=== PATIENT | male | born 1955 | race Caucasian/White ===

== ENCOUNTER 2023-04-15 22:55 | Observation (INO) | payer OTHER, MEDICAID, SELFPAY ==
[2023-04-15 22:59] VITALS: BP 120/84; PULSE 96; RESP 16; TEMP 36.8; O2SAT 97
[2023-04-16] VITALS (7 sets, daily range): BP systolic 113–126; BP diastolic 71–78; PULSE 74–96; RESP 16–18; TEMP 36.4–36.9; O2SAT 97–99; BMI 18.7
--- NOTE | 2023-04-16 00:09 | ED_ITS ---
HPI - General Adult General Chief complaint: Urogenital-Male Stated complaint: UTI Time Seen by Provider: 04/15/23 23:05 Source: patient Mode of arrival: ambulance History of Present Illness HPI narrative: This 67-year-old male is brought to the emergency department by EMS from a half-way in [place]. Patient states that he called 911 because he felt that his Hutchinson catheter which she has had for several months due to urinary retention was clogged and that he had a urinary tract infection. He has not had a fever. The back story is that this patient was discharged from [address] yesterday morning after he was admitted for Major depression for a 2 week stay. Into the records we were able to obtain the patient went to [facility] on April 03. At that time he was living in a motel with a female friend. He became agitated and complained of feeling suicidal while in the emergency department and was evaluated by P and transferred to [facility] for psychiatric evaluation and stabilization. The patient is wheelchair-bound because of chronic hip pain. He states he has [id number] in his hips and is nonambulatory. The patient was discharged yesterday and went to [facility] with his female senior staff consultant and found that she was no longer there. He was able to contact her and found that she was in a local half-way and [facility]. He went to this half-way this evening to see her and then called 911. The paramedics stated to us that he complained of urinary symptoms and was not feeling well. In this emergency department he states to me that he thinks he has a urinary tract inffection and that his Hutchinson catheter was clogged. His Hutchinson catheter was irrigated and is not clogged. He is afebrile. The patient apparently is homeless and is adamant that I called to speak to his female senior staff consultant and he wants to be admitted to the half-way where his friend is currently staying. He states that they have a house that we'll be ready in early April together. Related Data Allergies Allergy/AdvReac Type Severity Reaction Status Date / Time Unable to Assess Allergy Verified 04/16/23 00:19 Review of Systems ROS Status of ROS 10 or more systems reviewed and unremark able except as noted in history and below PFSH PFSH Social History Smoking status: Current every day smoker Exam Narrative Exam Narrative: Nurses note and vital signs reviewed and patient is not hypoxic.He is afebrile with a normal pulse, normal blood pressure General: Thin nontoxic male resting comfortably on the stretcher, no respiratory distress Skin: Warm, dry, no pallor noted. There is no rash noted. Head: Normocephalic, atraumatic Eye: Normal conjunctiva, no drainage, EOMI. PERRL Ears, Nose, Mouth, and Throat: oral mucosa is moist. Respiratory: Patient is in no distress, no accessory muscle use, lungs are clear to auscultation, no wheezing, rales or rhonchi Back: non-tender, no CVA tenderness bilaterally to percussion. GI: Normal bowel sounds, no tenderness to palpation, no masses appreciated. No rebound, guarding, or rigidity noted. : Hutchinson catheter in place draining clear yellow urine after irrigation, large bowel of urine noted in the Hutchinson bag Musculoskeletal: The patient has no evidence of calf tenderness, no pitting edema, symmetrical pulses noted bilaterally Neurological: A&O x4, No focal deficits Psychiatric: Irritable Constitutional Vital Signs, click to edit/add: Last Vital Signs Temp 98.2 F 04/15/23 22:59 Pulse 89 04/16/23 06:09 Resp 16 04/16/23 06:09 BP 116/77 04/16/23 06:09 Pulse Ox 99 04/16/23 06:09 O2 Del Method Room Air 04/16/23 06:09 Course Vital Signs Vital signs: Vital Signs Temperature 98.2 F 04/15/23 22:59 Pulse Rate 96 H 04/15/23 22:59 Respiratory Rate 16 04/15/23 22:59 Blood Pressure 120/84 04/15/23 22:59 Pulse Oximetry 97 04/15/23 22:59 Oxygen Delivery Method Room Air 04/15/23 22:59 Temperature 98.2 F 04/15/23 22:59 Pulse Rate 89 04/16/23 06:09 Respiratory Rate 16 04/16/23 06:09 Blood Pressure 116/77 04/16/23 06:09 Pulse Oximetry 99 04/16/23 06:09 Oxygen Delivery Method Room Air 04/16/23 06:09 Medical Decision Making MDM Narrative Medical decision making narrative: This 67-year-old homeless and non-ambulatory- wheelchair bound male is brought to the emergency department from a local extended care facility where he was visiting his girlfriend. He is currently homeless. EMS was called because the patient stated that he felt that his Hutchinson catheter was clogged and he was getting a urinary tract infection. Upon arrival it was clear that he was brought to the emergency department for ECF placement as he states that he wants to be admitted to the half-way where his girlfriend is currently staying until a house that they are supposed to be living in together is ready in mid April. The patient was formerly living in a local motel with this woman. She was admitted to a half-way and he was admitted to [address] for the past 2 weeks. His belongings that were in the motel are currently locked up because he and his girlfriend owe the motel money. EMS told us that they could not transport his wheelchair from the ECF due to safely reasons. I called them and informed them that this was unacceptable and they delivered his wheelchair and medications that he was discharged with to this ED. They did divulge to me on the phone that they brought him here for placement, despite their report of him being will with a UTI and did not think they needed to bring his wheelchair with him for that reason He is not toxic appearing he is not febrile. He is a diabetic. His glucose was elevated at 411. Remainder of his labs are normal. IV had been established by EMS and he was receiving IV fluids upon arrival. He had not eaten since this morning and probably prior to being discharged from [facility]. His hutchinson was irrigated and urine was obtained after it was irrigated and flowing freely and does show 75-100 WBC/HPF. Urine was sent for culture. He was given 1gm IV Rocephin for the UTI pending cultures. I, personally, made multiple calls to the 211 line that is supposed to help people with such issues and was told that there were no services available in [facility] referral line gave me the number for [facility] in [place], [place] - they have no available beds and the [facility] in [place] was unable to be contacted. [facility] had no services available except possibly in [place], [place]. I will discuss the case with the hospitalist at 6am due to the complexity of the social issues and potential need for placement. 0620- Case discussed at length with Dr Escobedo- we will consult social work as he has recently been admitted to [facility] and may not need admission for placement. Lab Data Lab results reviewed: Yes I reviewed the patient's lab results (=UTI, elevated glucose, normal lactic and creatinine) Labs: Lab Results 04/16/23 04/16/23 04/16/23 Range/Units 00:00 01:51 02:00 WBC 11.1 H (4.0-11.0) 10^3/uL RBC 4.65 L (4.70-6.10) 10^6/uL Hgb 13.5 L (14.0-18.0) g/dL Hct 41.1 L (42.0-54.0) % MCV 88.4 (80.0-94.0) fL MCH 29.0 (25.9-34.0) pg MCHC 32.8 (29.9-35.2) g/dL RDW 12.6 (11.0-15.0) % Plt Count 250 (150-450) 10^3/uL MPV 11.0 (9.5-13.5) fL Neut % (Auto) 80.4 H (43.0-75.0) % Lymph % (Auto) 12.1 L (20.5-60.0) % Jun[place] % (Auto) 6.1 (1.7-12.0) % Eos % (Auto) 0.4 L (0.9-7.0) % Baso % (Auto) 0.4 (0.2-2.0) % Neut # (Auto) 9.0 H (1.4-6.5) 10^3/uL Lymph # (Auto) 1.3 (1.2-3.8) 10^3/uL Jun[place] # (Auto) 0.7 (0.3-0.8) 10^3/uL Eos # (Auto) 0.0 (0.0-0.7) 10^3/uL Baso # (Auto) 0.0 (0.0-0.1) 10^3/uL Abs Immat Gran (auto) 0.07 H (0.00-0.03) 10^3/uL Imm/Tot Granulo (auto) 0.6 H (0.0-0.5) % Sodium 132 L (136-145) mmol/L Potassium 4.5 (3.5-5.1) mmol/L Chloride 98 (98-107) mmol/L Carbon Dioxide 29.3 (21.0-32.0) mmol/L Anion Gap 9.2 BUN 16.0 (7.0-18.0) mg/dL Creatinine 0.67 L (0.70-1.30) mg/dL Est GFR ( Amer) >60 (>=60) Est GFR (Non-Af Amer) >60 (>=60) BUN/Creatinine Ratio 23.9 Glucose 420 H (74-106) mg/dL Lactate 1.7 (0.4-2.0) mmol/L Calcium 9.3 (8.5-10.1) mg/dL Total Bilirubin 0.3 (0.2-1.0) mg/dL AST 6 L (15-37) U/L ALT 8 L (16-63) U/L Alkaline Phosphatase 98 (46-116) U/L Total Protein 6.6 (6.4-8.2) g/dL Albumin 3.2 L (3.4-5.0) g/dL Globulin 3.4 g/dL Albumin/Globulin Ratio 0.9 Urine Color Yellow (YELLOW) Urine Clarity Clear (CLEAR) Urine pH 7.0 (5.0-9.0) Ur Specific [place] <=1.005 A (1.005-1.025) Urine Protein Negative (NEG/TRACE) mg/dL Urine Glucose (UA) >=1000 A (NEGATIVE) mg/dL Urine Ketones Negative (NEGATIVE) mg/dL Urine Occult Blood Trace-i (NEGATIVE) Urine Nitrite Negative (NEGATIVE) Urine Bilirubin Negative (NEGATIVE) Urine Urobilinogen 0.2 (0.2-1.0) EU/dL Ur Leukocyte Esterase Moderate A (NEGATIVE) Urine RBC 5-10 A (0-2) #/HPF Urine WBC 75-100 A (NONE SEEN) #/HPF Ur Squamous Epith Cells Rare (NONE/RARE) #/LPF Urine Crystals None seen (None Seen) #/HPF Urine Bacteria Large A (NONE SEEN) #/HPF Urine Casts None seen (NONE SEEN) #/LPF Urine Mucus None seen (NONE SEEN) POC Glucose 332 H (74-106) mg/dL 04/16/23 Range/Units 04:40 WBC (4.0-11.0) 10^3/uL RBC (4.70-6.10) 10^6/uL Hgb (14.0-18.0) g/dL Hct (42.0-54.0) % MCV (80.0-94.0) fL MCH (25.9-34.0) pg MCHC (29.9-35.2) g/dL RDW (11.0-15.0) % Plt Count (150-450) 10^3/uL MPV (9.5-13.5) fL Neut % (Auto) (43.0-75.0) % Lymph % (Auto) (20.5-60.0) % Juncos % (Auto) (1.7-12.0) % Eos % (Auto) (0.9-7.0) % Baso % (Auto) (0.2-2.0) % Neut # (Auto) (1.4-6.5) 10^3/uL Lymph # (Auto) (1.2-3.8) 10^3/uL Juncos # (Auto) (0.3-0.8) 10^3/uL Eos # (Auto) (0.0-0.7) 10^3/uL Baso # (Auto) (0.0-0.1) 10^3/uL Abs Immat Gran (auto) (0.00-0.03) 10^3/uL Imm/Tot Granulo (auto) (0.0-0.5) % Sodium (136-145) mmol/L Potassium (3.5-5.1) mmol/L Chloride (98-107) mmol/L Carbon Dioxide (21.0-32.0) mmol/L Anion Gap BUN (7.0-18.0) mg/dL Creatinine (0.70-1.30) mg/dL Est GFR ( Amer) (>=60) Est GFR (Non-Af Amer) (>=60) BUN/Creatinine Ratio Glucose (74-106) mg/dL Lactate 1.7 (0.4-2.0) mmol/L Calcium (8.5-10.1) mg/dL Total Bilirubin (0.2-1.0) mg/dL AST (15-37) U/L ALT (16-63) U/L Alkaline Phosphatase (46-116) U/L Total Protein (6.4-8.2) g/dL Albumin (3.4-5.0) g/dL Globulin g/dL Albumin/Globulin Ratio Urine Color (YELLOW) Urine Clarity (CLEAR) Urine pH (5.0-9.0) Ur Specific [place] (1.005-1.025) Urine Protein (NEG/TRACE) mg/dL Urine Glucose (UA) (NEGATIVE) mg/dL Urine Ketones (NEGATIVE) mg/dL Urine Occult Blood (NEGATIVE) Urine Nitrite (NEGATIVE) Urine Bilirubin (NEGATIVE) Urine Urobilinogen (0.2-1.0) EU/dL Ur Leukocyte Esterase (NEGATIVE) Urine RBC (0-2) #/HPF Urine WBC (NONE SEEN) #/HPF Ur Squamous Epith Cells (NONE/RARE) #/LPF Urine Crystals (None Seen) #/HPF Urine Bacteria (NONE SEEN) #/HPF Urine Casts (NONE SEEN) #/LPF Urine Mucus (NONE SEEN) POC Glucose (74-106) mg/dL Discharge Plan Discharge Chief Complaint: Urogenital-Male Clinical Impression: Hyperglycemia due to diabetes mellitus, Homeless single person, UTI (urinary tract infection) due to urinary indwelling catheter Patient Disposition: Still a Patient Referrals: Physician,Non-Staff, MD [Primary Care Provider] - 1 week
--- NOTE | 2023-04-16 00:24 | PC.NURSE ---
Patient with hutchinson catheter, states he has had for over a month, but has been changed several times since initially placed. States he was visiting a friend at the prison in [place] when he started having pain, feeling like the urine was not draining, like it was clogged. Since this has happened in the past, his friend told him to call 911. On arrival to the ED, there was approximately 800ml of yellow, mucousy urine in the hutchinson drainage bag, and patient denies any pain or discomfort at this time.
[2023-04-16 00:32] LABS: Basophils Percent Auto 0.4 % (0.2-2.0); Eosinophils Percent Auto 0.4 % (0.9-7.0); Hematocrit 41.1 % (42.0-54.0); Hemoglobin 13.5 g/dL (14.0-18.0); Immature Granulocytes Abs Auto 0.07 10^3/uL (0.00-0.03); Immature Granulocytes Pct Auto 0.6 % (0.0-0.5); Lymphocytes Absolute Auto 1.3 10^3/uL (1.2-3.8); Lymphocytes Percent Auto 12.1 % (20.5-60.0); Mean Corpuscular HGB Conc 32.8 g/dL (29.9-35.2); Mean Corpuscular Volume 88.4 fL (80.0-94.0); Monocytes Absolute Auto 0.7 10^3/uL (0.3-0.8); Monocytes Percent Auto 6.1 % (1.7-12.0); Neutrophils Percent Auto 80.4 % (43.0-75.0); Platelet Count 250 10^3/uL (150-450); Red Blood Count 4.65 10^6/uL (4.70-6.10); Red Cell Distribution Width 12.6 % (11.0-15.0); White Blood Count 11.1 10^3/uL (4.0-11.0)
--- NOTE | 2023-04-16 00:33 | PC.NURSE ---
Patient describes that his stay at [facility] was not to the ER, but was a 2 week stay at [address] [place] [address]. He says he went in with a medical complaint about his catheter, but they made him stay in the [facility] , and he does not know why. He explains that when he got out today, they sent him home in a taxi, and by home, he means to the hotel he was living in with his significant other. When he arrived, she was not there. He went to the office of the hotel and found out that she had been moved to a snf in [place]. The box printer took him to this snf to see his significant other where he was visiting when he called 911. He explains that they have an apartment lined up that they plan to move into together, but it will not be ready for them until the middle of April. He would ultimately like to be sent to live at the same snf where the friend lives. He is otherwise homeless. He is wheelchair bound due to chronic right hip degeneration. He is diabetic and his sugars have been uncontrolled.
[2023-04-16 00:48] LABS: Lactate/Lactic Acid 1.7 mmol/L (0.4-2.0)
[2023-04-16 00:55] LABS: Alanine Aminotransferase 8 U/L (16-63); Albumin Globulin Ratio 0.9; Albumin Level 3.2 g/dL (3.4-5.0); Alkaline Phosphatase 98 U/L (46-116); Anion Gap 9.2; Aspartate Amino Transferase 6 U/L (15-37); BUN Creatinine Ratio 23.9; Bilirubin Total 0.3 mg/dL (0.2-1.0); Calcium 9.3 mg/dL (8.5-10.1); Carbon Dioxide 29.3 mmol/L (21.0-32.0); Chloride 98 mmol/L (98-107); Estimated GFR (African America >60 (>=60); Estimated GFR (Non-African Ame >60 (>=60); Globulin 3.4 g/dL; Glucose 420 mg/dL (74-106); Potassium 4.5 mmol/L (3.5-5.1); Sodium 132 mmol/L (136-145); Total Protein 6.6 g/dL (6.4-8.2)
[2023-04-16] MEDS: INSULIN REGULAR 300 UNITS/3 ML 8 UNIT SUBQ (01:52)
[2023-04-16 01:58] LABS: Glucometer 332 mg/dL (74-106)
[2023-04-16 02:08] LABS: Bilirubin Urine NEGATIVE (NEGATIVE); Blood Urine TRACE-I (NEGATIVE); Clarity Urine CLEAR (CLEAR); Color Urine YELLOW (YELLOW); Glucose Urine UA >=1000 mg/dL (NEGATIVE); Ketones Urine NEGATIVE (NEGATIVE); Leukocyte Esterase Urine MODERATE (NEGATIVE); Nitrite Urine NEGATIVE (NEGATIVE); Protein Urine NEGATIVE (NEG/TRACE); Specific Gravity Urine <=1.005 (1.005-1.025); Urobilinogen Urine 0.2 EU/dL (0.2-1.0)
--- NOTE | 2023-04-16 02:12 | PC.NURSE ---
Dr Flores used the 211 resource number to try and find accommodations for this patient. She was given several numbers to try, none of which were able to help at this time. I also called the [facility] in [place], there were no openings there, and the other local homeless shelters were not open. At this time, Dr Flores has said that the patient does not meet criteria for admission here, so she is going to keep him in the ED and have high school social science teacher speak to him in the morning. He has asked that high school social science teacher please call April Jacob at [phone] who is his friend/ significant other that lives at the pen[facility]iary in [place] at [address] ([place] He told me that he is not great at communicating, but he would like April to speak on his behalf about their situation.
[2023-04-16 02:16] LABS: Bacteria Urine LARGE #/HPF (NONE SEEN); Cast Seen? NONE SEEN #/LPF (NONE SEEN); Crystals Seen? None Seen #/HPF (None Seen); Mucus Urine NONE SEEN (NONE SEEN); Squamous Epithelial Cell Urine RARE #/LPF (NONE/RARE); WBC Urine 75-100 #/HPF (NONE SEEN)
[2023-04-16] MEDS: CEFTRIAXONE 1,000 MG in 0.9 % SODIUM CHLORIDE 50 ML 100 MG IV ×2 (03:51→22:29)
[2023-04-16 05:13] LABS: Lactate/Lactic Acid 1.7 mmol/L (0.4-2.0)
--- NOTE | 2023-04-16 09:22 | P.HP_ITS ---
H&P: HPI History of Present Illness Chief complaint: UTI Narrative: Patient with a complicated recent history, recent discharge from [facility], sent home, unable to ambulate on right hip. Patient has been through rehab in the past for this right hip pain with success in terms of getting him to be able to walk with a walker. Unable to currently. Patient also found to have acute UTI with leukocytosis and poorly controlled diabetes mellitus. Acute UTI secondary to chronic indwelling Johnson for BPH. Has been treated as an outpatient for the UTI. With failed outpatient treatment for UTI uncontrolled diabetes and unable to ambulate secondary to right hip pain patient is admitted to inpatient status for evaluation and aggressive treatment. Review of Systems ROS Status of ROS 10 or more systems reviewed and unremark able except as noted in history and below Constitutional Denies: fever or chills Cardiovascular Denies: chest pain or palpitations Respiratory Reports: shortness of breath and cough PFSH PFSH Social History Smoking status: Current every day smoker Meds Home Medications and Allergies Home Medications Medication Instructions Recorded Confirmed Type finasteride 5 mg tablet 5 mg PO DAILY 04/16/23 04/16/23 History insulin glargine 100 unit/mL (3 32 unit subcut BEDTIME 04/16/23 04/16/23 History mL) subcutaneous pen (Lantus Solostar U-100 Insulin) insulin regular human 100 unit/mL 1 sliding scale dose subcut 04/16/23 04/16/23 History (3 mL) subcutaneous pen (Novolin R TIDWMEAL FlexPen) lithium carbonate 300 mg 300 mg PO BID 04/16/23 04/16/23 History tablet,extended release metformin 500 mg tablet 500 mg PO BID 04/16/23 04/16/23 History oxybutynin chloride 5 mg tablet 5 mg PO BEDTIME 04/16/23 04/16/23 History tamsulosin 0.4 mg capsule 0.4 mg PO BID 04/16/23 04/16/23 History Allergies Allergy/AdvReac Type Severity Reaction Status Date / Time Unable to Assess Allergy Verified 04/16/23 00:19 Exam Constitutional Vital Signs, click to edit/add: Last Vital Signs Temp 98.2 F 04/15/23 22:59 Pulse 89 04/16/23 06:09 Resp 16 04/16/23 06:09 BP 116/77 04/16/23 06:09 Pulse Ox 99 04/16/23 06:09 O2 Del Method Room Air 04/16/23 06:09 Documenting provider has reviewed patient's vital signs: yes Common normals: no apparent distress (Slight cough) HENMT Common normals: moist oral mucous membranes Chest Common normals: inspection of chest normal Respiratory Common normals: normal respiratory effort and no retractions Auscultation: rhonchi and diminished lung sounds Cardio Common normals: regular rate, regular rhythm and no murmurs GI Common normals: Normal to inspection, nondistended, normoactive bowel sounds present Extremity Common normals: normal to inspection Other: Very limited range of motion right hip secondary to pain. Psych Appearance: grossly normal Results Labs Labs: Short CBC 04/16/23 Range/Units 00:00 WBC 11.1 H (4.0-11.0) 10^3/uL Hgb 13.5 L (14.0-18.0) g/dL Hct 41.1 L (42.0-54.0) % Plt Count 250 (150-450) 10^3/uL BMP 04/16/23 00:00 Sodium 132 L Potassium 4.5 Chloride 98 Carbon Dioxide 29.3 BUN 16.0 Creatinine 0.67 L Glucose 420 H Calcium 9.3 Liver Function 04/16/23 Range/Units 00:00 Total Bilirubin 0.3 (0.2-1.0) mg/dL AST 6 L (15-37) U/L ALT 8 L (16-63) U/L Alkaline Phosphatase 98 (46-116) U/L Albumin 3.2 L (3.4-5.0) g/dL Urine 04/16/23 Range/Units 02:00 Urine Color Yellow (YELLOW) Urine Clarity Clear (CLEAR) Urine pH 7.0 (5.0-9.0) Ur Specific [place] <=1.005 A (1.005-1.025) Urine Protein Negative (NEG/TRACE) mg/dL Urine Glucose (UA) >=1000 A (NEGATIVE) mg/dL Assessment and Plan Assessment and Plan (1) UTI (urinary tract infection) due to urinary indwelling catheter: (2) Hyperglycemia due to diabetes mellitus: Plan Leukocytosis, hyponatremia secondary to uncontrolled diabetes mellitus secondary to acute UTI secondary to chronic indwelling Johnson-IV antibiotics, broad- spectrum's has been and placed on oral agents although he does not member which 1 as an outpatient. Start with Cipro and Rocephin. Cultures pending for blood and urine. Poorly controlled insulin-dependent diabetes mellitus-insulin sliding scale here will continue with home regiment. That likely needs to be adjusted. Sugar also likely elevated secondary to the above. Hyponatremia secondary to hyperglycemia-monitor daily, patient with good p.o. intake currently so we will hold off on IV fluids. Coronary artery disease-patient has 1 stent placed continue with daily aspirin. Check high-sensitivity troponin for possible demand ischemia from the above. May need echocardiogram Iron deficiency anemia as well as anemia of chronic medical illness being diabetes-continue to monitor, if continues to decline possible Hemoccult Leukocytosis secondary to the acute UTI-monitor daily Mild protein calorie malnutrition-diet supplement Right hip patient unable to ambulate. He has been to rehab before with success in terms of making it so he can ambulate. At some point in his life he likely needs a hip replacement but was sugar uncontrolled would not happen anytime in the near future. Patient is highly motivated for returning to home. He would be an excellent candidate at rehab as he has been successful in the past. Bipolar disorder-check lithium level COPD-fairly stable does have a cough, will check chest x-ray, on antibiotics for the UTI may cover any infectious etiology if this is at the start of an acute exacerbation of COPD. Hold off on steroids secondary to the hyperglycemia Place patient inpatient status secondary to all of the above-failed outpatient treatment, patient unable to ambulate and could benefit from a rehabilitation. Blood physical therapy assessed patient today. Maintain current inpatient status. Patient likely here at least 3 days, possibly forbade depending on results of cultures. Highly suspect resistant organisms secondary to failed outpatient treatment Urinary Catheter Management Urinary Catheter Management Urethral: Cath placed during this visit: no
--- NOTE | 2023-04-16 09:25 | XR_ITS ---
The [address] [address] Patient Name: JOANN BARNETT MRN: [id number] date: 1955 Sex: M Assigned Patient Location: ER Current Patient Location: ER Accession/Order Number: [id number] Exam Date: 04/16/2023 09:42 Report Date: 04/16/2023 09:56 At the request of: YOSI BARRETT Procedure: XR chest 2V EXAMINATION: XR chest 2V HISTORY: Dyspnea COMPARISON: No relevant comparison available. FINDINGS: LUNGS: No significant pulmonary parenchymal abnormalities. VASCULATURE: No increased pulmonary vasculature. PLEURA: No pneumothorax, effusion, or pleural thickening. CARDIAC: No cardiomegaly or cardiac silhouette abnormality. MEDIASTINUM: No visible mass or adenopathy. BONES: No fracture or visible bone lesion. OTHER: Negative. XR/XR chest 2V IMPRESSION: 1. No acute cardiopulmonary process. Electronically authenticated by: LUI CHANDLER Date: 04/16/2023 09:56
--- NOTE | 2023-04-16 09:31 | XR_ITS ---
The [address] [address] Patient Name: JOANN BARNETT MRN: [id number] date: 1955 Sex: M Assigned Patient Location: ER Current Patient Location: Accession/Order Number: [id number] Exam Date: 04/16/2023 09:42 Report Date: 04/16/2023 10:00 At the request of: YOSI BARRETT Procedure: XR hip RT 2V w/ pelvis PROCEDURE: XR hip RT 2V w/ pelvis HISTORY: r hip pain , chronic; no known injury COMPARISON: None. FINDINGS: BONES:Complete loss of the right hip joint space with subchondral sclerosis and cysts, and marked remodeling of the femoral head and acetabulum. No fracture or dislocation. Mild-moderate degenerative changes of the left hip joint. SOFT TISSUES:No visible soft tissue swelling. EFFUSION:None visible. OTHER: Large stool burden. XR/XR hip RT 2V w/ pelvis IMPRESSION: 1. Advanced degenerative joint disease of the right hip. 2. No acute bone abnormality. Electronically authenticated by: LUI CHANDLER Date: 04/16/2023 10:00
[2023-04-16 10:15] LABS: Troponin I High Sensitivity 7.9 pg/mL (4.0-76.1)
[2023-04-16 10:25] LABS: Free T3 1.92 pg/mL (2.18-3.98); Magnesium 1.7 mg/dL (1.8-2.4); Thyroid Stimulating Hormone 3.953 uIU/mL (0.358-3.740)
[2023-04-16] MEDS: CIPROFLOXACIN IN 5 % DEXTROSE 400 MG/200 ML PIGGYBACK 200 MG IV (11:18)
[2023-04-16] MEDS: METFORMIN HCL 500 MG TABLET PO ×2 (11:19→21:00)
[2023-04-16] MEDS: TAMSULOSIN HCL 0.4 MG CAPSULE PO ×2 (11:19→21:00)
[2023-04-16] MEDS: ACETAMINOPHEN 500 MG TABLET 1000 MG PO ×2 (11:19→21:08)
[2023-04-16] MEDS: ASPIRIN 81 MG TABLET.DR PO (11:19)
[2023-04-16 11:29] LABS: Glucometer 364 mg/dL (74-106)
[2023-04-16] MEDS: INSULIN ASPART 300 UNIT/3 ML PEN SUBQ ×3 (11:29→22:34)
--- NOTE | 2023-04-16 12:33 | CM.NOTE ---
Clinical e-faxed to admissions at [facility] for new referral. Talked with admissions and clinical has been received. Pt will be a pre-cert for skilled therapy.
[2023-04-16] MEDS: ENSURE HP 237 ML LIQUID PO ×2 (12:52→21:01)
[2023-04-16 16:25] LABS: Glucometer 142 mg/dL (74-106)
[2023-04-16] MEDS: CALCIUM CARBONATE 500 MG (200MG ELEMENTAL) TAB CHEW PO (16:30)
[2023-04-16] MEDS: PANTOPRAZOLE SODIUM 40 MG VIAL IV (17:25)
--- NOTE | 2023-04-16 19:45 | RESP.RT ---
No PRN breathing tx given. Pt denies need. No respiratory distress noted.
[2023-04-16 19:53] LABS: Glucometer 213 mg/dL (74-106)
[2023-04-16] MEDS: INSULIN DETEMIR 300 UNIT/3 ML INSULN.PEN 32 UNIT SUBQ (22:35)
[2023-04-16] MEDS: OXYBUTYNIN chloride 5 MG TABLET PO (22:44)
[2023-04-16] MEDS: CIPROFLOXACIN IN 5 % DEXTROSE 400 MG/200 ML PIGGYBACK 150 MG IV (23:26)
[2023-04-17] VITALS (7 sets, daily range): BP systolic 102–107; BP diastolic 62–70; PULSE 71–96; RESP 18–22; TEMP 36.6–36.7; O2SAT 94–99
[2023-04-17 05:12] LABS: Lithium (Eskalith(R)), Serum 0.4 mmol/L (0.5-1.2)
[2023-04-17 05:17] LABS: Basophils Percent Auto 0.4 % (0.2-2.0); Eosinophils Absolute Auto 0.3 10^3/uL (0.0-0.7); Eosinophils Percent Auto 4.8 % (0.9-7.0); Hematocrit 38.3 % (42.0-54.0); Hemoglobin 12.7 g/dL (14.0-18.0); Immature Granulocytes Abs Auto 0.07 10^3/uL (0.00-0.03); Lymphocytes Absolute Auto 1.2 10^3/uL (1.2-3.8); Lymphocytes Percent Auto 17.4 % (20.5-60.0); Mean Corpuscular HGB Conc 33.2 g/dL (29.9-35.2); Mean Corpuscular Hemoglobin 29.3 pg (25.9-34.0); Mean Corpuscular Volume 88.5 fL (80.0-94.0); Mean Platelet Volume 10.9 fL (9.5-13.5); Monocytes Absolute Auto 0.6 10^3/uL (0.3-0.8); Monocytes Percent Auto 8.9 % (1.7-12.0); Neutrophils Absolute Auto 4.6 10^3/uL (1.4-6.5); Neutrophils Percent Auto 67.5 % (43.0-75.0); Platelet Count 252 10^3/uL (150-450); Red Blood Count 4.33 10^6/uL (4.70-6.10); Red Cell Distribution Width 12.7 % (11.0-15.0); White Blood Count 6.8 10^3/uL (4.0-11.0)
[2023-04-17 05:36] LABS: Alanine Aminotransferase 15 U/L (16-63); Albumin Globulin Ratio 0.9; Albumin Level 2.8 g/dL (3.4-5.0); Alkaline Phosphatase 89 U/L (46-116); Anion Gap 9.5; Aspartate Amino Transferase 9 U/L (15-37); BUN Creatinine Ratio 18.3; Bilirubin Total 0.2 mg/dL (0.2-1.0); Calcium 9.2 mg/dL (8.5-10.1); Carbon Dioxide 26.3 mmol/L (21.0-32.0); Chloride 100 mmol/L (98-107); Estimated GFR (African America >60 (>=60); Estimated GFR (Non-African Ame >60 (>=60); Globulin 3.2 g/dL; Glucose 269 mg/dL (74-106); Potassium 3.8 mmol/L (3.5-5.1); Sodium 132 mmol/L (136-145)
[2023-04-17] MEDS: LIOTHYRONINE SODIUM 5 MCG TABLET PO ×2 (07:06→08:30)
[2023-04-17] MEDS: MAGNESIUM OXIDE 400 MG TABLET PO ×2 (07:06→08:30)
--- NOTE | 2023-04-17 07:42 | CM.NOTE ---
Rounds made with Dr. Escobedo, discharge plan is to go to [facility] for skilled therapy.
--- NOTE | 2023-04-17 08:20 | P.PN_ITS ---
Progress Note: Subjective Subjective Interval history: Patient sleepy but arousable-no new complaints. Denies cough or shortness of breath Exam Constitutional Vital Signs, click to edit/add: Last Vital Signs Temp 98.0 F 04/17/23 07:08 Pulse 74 04/17/23 07:08 Resp 22 04/17/23 07:08 BP 102/63 04/17/23 07:08 Pulse Ox 95 04/17/23 07:08 O2 Del Method Room Air 04/17/23 07:08 Documenting provider has reviewed patient's vital signs: yes Common normals: no apparent distress (Slight cough) HENMT Common normals: moist oral mucous membranes Chest Common normals: inspection of chest normal Respiratory Common normals: normal respiratory effort and no retractions Auscultation: rhonchi and diminished lung sounds Cardio Common normals: regular rate, regular rhythm and no murmurs GI Common normals: Normal to inspection, nondistended, normoactive bowel sounds present Extremity Common normals: normal to inspection Other: Very limited range of motion right hip secondary to pain. Psych Appearance: grossly normal Progress Note: Objective Labs Labs: Short CBC 04/17/23 Range/Units 04:31 WBC 6.8 (4.0-11.0) 10^3/uL Hgb 12.7 L (14.0-18.0) g/dL Hct 38.3 L (42.0-54.0) % Plt Count 252 (150-450) 10^3/uL BMP 04/17/23 04:31 Sodium 132 L Potassium 3.8 Chloride 100 Carbon Dioxide 26.3 BUN 13.0 Creatinine 0.71 Glucose 269 H Calcium 9.2 Liver Function 04/17/23 Range/Units 04:31 Total Bilirubin 0.2 (0.2-1.0) mg/dL AST 9 L (15-37) U/L ALT 15 L (16-63) U/L Alkaline Phosphatase 89 (46-116) U/L Albumin 2.8 L (3.4-5.0) g/dL Progress Note: A&P Assessment and Plan (1) UTI (urinary tract infection) due to urinary indwelling catheter: (2) Hyperglycemia due to diabetes mellitus: Plan Leukocytosis, hyponatremia secondary to uncontrolled diabetes mellitus secondary to acute UTI secondary to chronic indwelling Johnson-IV antibiotics, broad- spectrum's checking blood and urine cultures later today. So far would say is stable Poorly controlled insulin-dependent diabetes mellitus-continue to adjust insulin sliding scale Hyponatremia secondary to [id number] continue to monitor Coronary artery disease-patient has 1 stent placed continue with daily aspirin. Hold off on echocardiogram as patient is asymptomatic Iron deficiency anemia as well as anemia of chronic medical illness being diabetes-continue to monitor, if continues to decline possible Hemoccult Leukocytosis secondary to the acute UTI-improved Mild protein calorie malnutrition-diet supplement Right hip patient unable to ambulate. He has been to rehab before with success in terms of making it so he can ambulate. At some point in his life he likely needs a hip replacement but was sugar uncontrolled would not happen anytime in the near future. Patient is highly motivated for returning to home. He would be an excellent candidate at rehab as he has been successful in the past. Planning on placing in rehab hopefully in the next day or 2 Bipolar disorder-lithium level slightly low but with treatment of the above that may elevate. Continue with current dosing COPD-fairly stable does have a cough, will check chest x-ray, on antibiotics for the UTI may cover any infectious etiology if this is at the start of an acute exacerbation of COPD. Hold off on steroids secondary to the hyperglycemia Place patient inpatient status secondary to all of the above-failed outpatient treatment, patient unable to ambulate and could benefit from a rehabilitation. Blood physical therapy assessed patient today. Maintain current inpatient status. Patient likely here at least 3 days, possibly forbade depending on results of cultures. Highly suspect resistant organisms secondary to failed outpatient treatment Urinary Catheter Management Urinary Catheter Management Urethral: Cath placed during this visit: no
[2023-04-17] MEDS: INSULIN ASPART 300 UNIT/3 ML PEN SUBQ ×3 (08:24→21:25)
[2023-04-17] MEDS: FINASTERIDE 5 MG TABLET PO (08:25)
[2023-04-17] MEDS: METFORMIN HCL 500 MG TABLET PO ×2 (08:26→21:24)
[2023-04-17] MEDS: TAMSULOSIN HCL 0.4 MG CAPSULE PO ×2 (08:27→21:24)
[2023-04-17] MEDS: GLIMEPIRIDE 2 MG TABLET PO (08:30)
[2023-04-17] MEDS: HYOSCYAMINE SULFATE 0.125 MG TAB.SUBL SL ×4 (08:30→21:25)
[2023-04-17] MEDS: ENSURE HP 237 ML LIQUID PO ×2 (08:30→21:23)
[2023-04-17] MEDS: ASPIRIN 81 MG TABLET.DR PO (08:30)
[2023-04-17] MEDS: ACETAMINOPHEN 500 MG TABLET 1000 MG PO ×2 (09:43→21:27)
[2023-04-17] MEDS: CIPROFLOXACIN IN 5 % DEXTROSE 400 MG/200 ML PIGGYBACK 150 MG IV ×2 (10:03→22:01)
[2023-04-17 11:22] LABS: Glucometer 94 mg/dL (74-106)
--- NOTE | 2023-04-17 11:27 | CM.NOTE ---
[facility] will accept patient, awaiting precert.
--- NOTE | 2023-04-17 12:20 | PT.DAILY ---
Physical Therapy Daily Note PT Daily Note/Assess Start: 04/17/23 12:15 Freq: Status: Active Protocol: Document 04/17/23 09:20 TESS (Rec: 04/17/23 12:20 TESS [id number]) Physical Therapy Daily Note/Assessment Time In/Time Out Time In :23 Time Out 09:35 Pain In Pain Level 5 Pain Out Pain Level 5 Subjective Subjective Hip is pretty painful this morning, hasn't had pain meds yet today. Was just getting ready to nap but with encouragement agrees to PT Therapeutic Exercise Time Therapeutic Exercise Minutes (minutes) 4 Therapeutic Exercise Units 0 Therapeutic Exercise Treatment Therapeutic Exercise Treatment Seated exercises EOB 10 reps as tolerated. Unable to march due to R hip pain. Therapeutic Activity Time Therapeutic Activity Minutes (minutes) 8 Therapeutic Activity Units 1 Therapeutic Activity Treatment Bed Mobility Ability Modified Independent Chair Transfer Ability Standby Assistance Therapeutic Activity Comments Patient does well with bed mobility and sit to stand transfers. Gait 30 ft. with RW CGA to min assist. Patient is very unsteady with gait using RW, tends to lean posterior. Does report that gait/standing take pressure of hip and pain is less. Total Physical Therapy Time Total Therapy Minutes 12 Total Physical Therapy Units 1 Summary Daily Note Summary Patient requires assistance with short distance ambulation using RW. Requires step to pattern, and at times unsteady . Buckle of R LE 2x that required min assist from therapist to correct to prevent fall. Would recommend SNF at [place] to build up R LE strength as much as possible and promote use of AD for safe ambulation.
--- NOTE | 2023-04-17 14:56 | CM.NOTE ---
Called intake at [facility] and left med-surg extension when precertification is completed.
--- NOTE | 2023-04-17 16:05 | CM.NOTE ---
PASSAR completed for [facility].
[2023-04-17 16:23] LABS: Glucometer 147 mg/dL (74-106)
[2023-04-17] MEDS: 0.9 % SODIUM CHLORIDE 1,000 ML 75 ML IV (16:32)
[2023-04-17] MEDS: PANTOPRAZOLE SODIUM 40 MG VIAL IV (16:39)
--- NOTE | 2023-04-17 16:54 | NUTR.NU ---
Pt w/UTI and poorly-controlled DM. PO intakes of therapeutic diet are improving, now 75-100%. Pt also receives 237 mL Ensure High PRO supplement 1x daily to support nutritional status. Abnormal labs indicate hyperglycemia, hyponatremia, inflammation. Pt appears to meet his estimated nutrient requirements at this time; no new recommendations. Will follow PRN.
[2023-04-17 20:44] LABS: Glucometer 198 mg/dL (74-106)
[2023-04-17] MEDS: CEFTRIAXONE 1,000 MG in 0.9 % SODIUM CHLORIDE 50 ML 100 MG IV (21:24)
[2023-04-17] MEDS: INSULIN DETEMIR 300 UNIT/3 ML INSULN.PEN 32 UNIT SUBQ (21:26)
[2023-04-17] MEDS: OXYBUTYNIN chloride 5 MG TABLET PO (21:27)
[2023-04-18] MEDS: HYOSCYAMINE SULFATE 0.125 MG TAB.SUBL SL ×4 (05:38→21:21)
[2023-04-18 05:41] VITALS: BP 110/71; PULSE 76; RESP 18; TEMP 36.6; O2SAT 95
[2023-04-18 05:50] LABS: Basophils Percent Auto 0.4 % (0.2-2.0); Eosinophils Absolute Auto 0.3 10^3/uL (0.0-0.7); Eosinophils Percent Auto 4.1 % (0.9-7.0); Hematocrit 37.1 % (42.0-54.0); Hemoglobin 12.2 g/dL (14.0-18.0); Immature Granulocytes Abs Auto 0.06 10^3/uL (0.00-0.03); Immature Granulocytes Pct Auto 0.9 % (0.0-0.5); Lymphocytes Absolute Auto 1.7 10^3/uL (1.2-3.8); Lymphocytes Percent Auto 25.1 % (20.5-60.0); Mean Corpuscular HGB Conc 32.9 g/dL (29.9-35.2); Mean Corpuscular Hemoglobin 29.1 pg (25.9-34.0); Mean Corpuscular Volume 88.5 fL (80.0-94.0); Mean Platelet Volume 11.3 fL (9.5-13.5); Monocytes Absolute Auto 0.5 10^3/uL (0.3-0.8); Monocytes Percent Auto 7.8 % (1.7-12.0); Neutrophils Absolute Auto 4.2 10^3/uL (1.4-6.5); Neutrophils Percent Auto 61.7 % (43.0-75.0); Platelet Count 251 10^3/uL (150-450); Red Blood Count 4.19 10^6/uL (4.70-6.10); Red Cell Distribution Width 12.9 % (11.0-15.0); White Blood Count 6.8 10^3/uL (4.0-11.0)
[2023-04-18 06:19] LABS: Alanine Aminotransferase 14 U/L (16-63); Albumin Globulin Ratio 0.9; Albumin Level 2.8 g/dL (3.4-5.0); Alkaline Phosphatase 87 U/L (46-116); Aspartate Amino Transferase 10 U/L (15-37); BUN Creatinine Ratio 15.2; Bilirubin Total 0.2 mg/dL (0.2-1.0); Calcium 8.9 mg/dL (8.5-10.1); Carbon Dioxide 25.6 mmol/L (21.0-32.0); Chloride 104 mmol/L (98-107); Estimated GFR (African America >60 (>=60); Estimated GFR (Non-African Ame >60 (>=60); Globulin 3.1 g/dL; Glucose 152 mg/dL (74-106); Potassium 3.6 mmol/L (3.5-5.1); Sodium 138 mmol/L (136-145); Total Protein 5.9 g/dL (6.4-8.2)
[2023-04-18 08:00] VITALS: RESP 18
[2023-04-18] MEDS: 0.9 % SODIUM CHLORIDE 1,000 ML 75 ML IV (09:17)
[2023-04-18] MEDS: GLIMEPIRIDE 2 MG TABLET PO (09:20)
[2023-04-18] MEDS: MAGNESIUM OXIDE 400 MG TABLET PO (09:20)
[2023-04-18] MEDS: TAMSULOSIN HCL 0.4 MG CAPSULE PO ×2 (09:20→21:21)
[2023-04-18] MEDS: METFORMIN HCL 500 MG TABLET PO ×2 (09:21→21:21)
[2023-04-18] MEDS: FINASTERIDE 5 MG TABLET PO (09:21)
[2023-04-18] MEDS: LIOTHYRONINE SODIUM 5 MCG TABLET PO (09:21)
[2023-04-18 11:05] LABS: Glucometer 128 mg/dL (74-106)
--- NOTE | 2023-04-18 11:08 | PT.DAILY ---
Physical Therapy Daily Note PT Daily Note/Assess Start: 04/17/23 12:15 Freq: Status: Active Protocol: Document 04/18/23 08:45 TESS (Rec: 04/18/23 11:08 TESS [id number]) Physical Therapy Daily Note/Assessment Time In/Time Out Time In 08:45 Time Out 08:55 Subjective Subjective Patient agrees to PT at first reports feeling a little better today. Hip isn't has painful as R knee now. Therapeutic Exercise Time Therapeutic Exercise Minutes (minutes) 1 Therapeutic Exercise Units 10 Therapeutic Exercise Treatment Therapeutic Exercise Treatment Supine exercises with isometrics and AROM 10 reps each to promote LE ROM and strength. Patient does well with these, does complaint of fatigue but denies increase in pain. Therapeutic Activity Treatment Bed Mobility Ability Modified Independent Therapeutic Activity Comments Initially patient sits up to EOB to put on hospital gown, but then complains of being hot all of the sudden. Request to lye back down and rest to cool off. Asked patient if he wanted me to get nursing but he states no, I feel fine I am just hot and tired. Wants to rest. Denies dizziness or being nauseas. Total Physical Therapy Time Total Therapy Minutes 1 Total Physical Therapy Units 10 Summary Daily Note Summary Progressed exercise program with supine exercises this date. RX was limited due to fatigue and patient complaints of being warm today. Continues to demonstrate good ability with bed mobility but would recommend SNF at [place] for patient to regain strength in B LE.
[2023-04-18] MEDS: OMEPRAZOLE 40 MG CAPSULE.DR PO (11:43)
[2023-04-18] MEDS: FLUCONAZOLE 150 MG TABLET PO (11:43)
[2023-04-18 11:57] VITALS: O2SAT 96
--- NOTE | 2023-04-18 12:07 | P.IMPN_ITS ---
Progress Note: A&P Assessment and Plan (1) UTI (urinary tract infection) due to urinary indwelling catheter: Assessment and Plan: associated with chronic indwelling catheter. Urine cx growing Gilda. Will start on PO fluconazole. Change urinary catheter. C/w rocephin for now. Qualifiers: Indwelling urinary catheter type: indwelling urethral catheter Encounter type: subsequent encounter Qualified Code(s): T83.511D - Infection and inflammatory reaction due to indwelling urethral catheter, subsequent encounter; N39.0 - Urinary tract infection, site not specified (2) Hyperglycemia due to diabetes mellitus: Assessment and Plan: FSBS at goal. c/w home regimen (3) Major depression: Assessment and Plan: Stable mood. Recent admission at [facility] for suicidal ideation (4) BPH (benign prostatic hyperplasia): Assessment and Plan: Chronic indwelling catheter in place. On Flomax and Finasteride. C/w same. (5) Ambulatory dysfunction: Assessment and Plan: due to severe hip arthritis. Wheelchair bound. Plan Patient is homeless, wheelchair bound. He has no family around. His female friend who he lived with - is at [facility] now. He will stay inpatient until a safe, reasonable discharge plan is present. Based on his physical conditions, living situation, penitentiary placement seems most reasonable. Internal Medicine - PN: Subj Subjective Interval history: Seen and examined. Feeling better. No complaints to offer. Exam Constitutional Vital Signs, click to edit/add: Last Vital Signs Temp 97.8 F 04/18/23 05:41 Pulse 76 04/18/23 05:41 Resp 18 04/18/23 08:00 BP 110/71 04/18/23 05:41 Pulse Ox 96 04/18/23 11:57 O2 Del Method Room Air 04/18/23 11:57 Documenting provider has reviewed patient's vital signs: yes Common normals: no apparent distress and oriented x3 General appearance: cooperative Respiratory Common normals: normal respiratory effort and clear to auscultation bilaterally Effort & inspection: able to speak in complete sentences Auscultation: clear to auscultation bilaterally Cardio Common normals: regular rate, S1 normal heart sound and S2 normal heart sound Rate: regular rate Heart sounds: S1 normal and S2 normal Extremity Common normals: no clubbing, cyanosis or edema Neuro Common normals: oriented x3, moves all extremities and no focal motor deficits Internal Medicine - PN: Obj Da Labs Labs: Laboratory Results - last 24 hr 04/17/23 04/17/23 04/18/23 16:21 20:42 04:38 WBC 6.8 RBC 4.19 L Hgb 12.2 L Hct 37.1 L MCV 88.5 MCH 29.1 MCHC 32.9 RDW 12.9 Plt Count 251 MPV 11.3 Neut % (Auto) 61.7 Lymph % (Auto) 25.1 [place] % (Auto) 7.8 Eos % (Auto) 4.1 Baso % (Auto) 0.4 Neut # (Auto) 4.2 Lymph # (Auto) 1.7 [place] # (Auto) 0.5 Eos # (Auto) 0.3 Baso # (Auto) 0.0 Abs Immat Gran (auto) 0.06 H Imm/Tot Granulo (auto) 0.9 H Sodium 138 Potassium 3.6 Chloride 104 Carbon Dioxide 25.6 Anion Gap 12.0 BUN 10.0 Creatinine 0.66 L Est GFR ( Amer) >60 Est GFR (Non-Af Amer) >60 BUN/Creatinine Ratio 15.2 Glucose 152 H Calcium 8.9 Total Bilirubin 0.2 AST 10 L ALT 14 L Alkaline Phosphatase 87 Total Protein 5.9 L Albumin 2.8 L Globulin 3.1 Albumin/Globulin Ratio 0.9 POC Glucose 147 H 198 H 04/18/23 11:04 WBC RBC Hgb Hct MCV MCH MCHC RDW Plt Count MPV Neut % (Auto) Lymph % (Auto) [place] % (Auto) Eos % (Auto) Baso % (Auto) Neut # (Auto) Lymph # (Auto) [place] # (Auto) Eos # (Auto) Baso # (Auto) Abs Immat Gran (auto) Imm/Tot Granulo (auto) Sodium Potassium Chloride Carbon Dioxide Anion Gap BUN Creatinine Est GFR ( Amer) Est GFR (Non-Af Amer) BUN/Creatinine Ratio Glucose Calcium Total Bilirubin AST ALT Alkaline Phosphatase Total Protein Albumin Globulin Albumin/Globulin Ratio POC Glucose 128 H Urinary Catheter Management Urinary Catheter Management Urethral: Cath placed during this visit: no Urethral indwelling: Yes Reason for continuing: urinary obstruction
[2023-04-18 14:00] VITALS: BP 116/71; PULSE 89; RESP 18; TEMP 36.6; O2SAT 96
[2023-04-18] MEDS: ACETAMINOPHEN 500 MG TABLET 1000 MG PO (15:48)
[2023-04-18 16:04] LABS: Glucometer 240 mg/dL (74-106)
[2023-04-18] MEDS: INSULIN ASPART 300 UNIT/3 ML PEN SUBQ ×2 (17:29→21:20)
[2023-04-18] MEDS: LIDOCAINE 2% JELLY 10 ML UR (18:41)
--- NOTE | 2023-04-18 18:57 | PC.NURSE ---
Dr. Ascencio requested we change the patient's hutchinson catheter. The old hutchinson was removed. The catheter was intact with sediment around the tip. Urojet was placed in patient and new hutchinson was successfully placed.
[2023-04-18 19:57] VITALS: O2SAT 96
[2023-04-18 20:17] LABS: Glucometer 175 mg/dL (74-106)
[2023-04-18] MEDS: INSULIN DETEMIR 300 UNIT/3 ML INSULN.PEN 32 UNIT SUBQ (21:20)
[2023-04-18] MEDS: OXYBUTYNIN chloride 5 MG TABLET PO (21:21)
[2023-04-18] MEDS: CEFTRIAXONE 1,000 MG in 0.9 % SODIUM CHLORIDE 50 ML 100 MG IV (21:21)
[2023-04-18 21:33] VITALS: BP 134/78; PULSE 83; RESP 20; TEMP 36.9; O2SAT 96
[2023-04-19] MEDS: HYOSCYAMINE SULFATE 0.125 MG TAB.SUBL SL ×4 (05:33→21:45)
[2023-04-19] MEDS: OMEPRAZOLE 40 MG CAPSULE.DR PO (05:33)
[2023-04-19 05:41] VITALS: BP 128/80; PULSE 90; RESP 20; TEMP 36.6; O2SAT 98
[2023-04-19 07:51] VITALS: BP 139/87; PULSE 58; RESP 16
[2023-04-19] MEDS: INSULIN ASPART 300 UNIT/3 ML PEN SUBQ ×3 (08:15→21:45)
[2023-04-19] MEDS: LIOTHYRONINE SODIUM 5 MCG TABLET PO (08:37)
[2023-04-19] MEDS: FLUCONAZOLE 150 MG TABLET PO (08:37)
[2023-04-19] MEDS: ASPIRIN 81 MG TABLET.DR PO (08:37)
[2023-04-19] MEDS: MAGNESIUM OXIDE 400 MG TABLET PO (08:37)
[2023-04-19] MEDS: TAMSULOSIN HCL 0.4 MG CAPSULE PO ×2 (08:37→21:45)
[2023-04-19] MEDS: FINASTERIDE 5 MG TABLET PO (08:37)
[2023-04-19] MEDS: GLIMEPIRIDE 2 MG TABLET PO (08:37)
[2023-04-19] MEDS: METFORMIN HCL 500 MG TABLET PO ×2 (08:37→21:46)
[2023-04-19] MEDS: ACETAMINOPHEN 500 MG TABLET 1000 MG PO (08:42)
[2023-04-19 11:06] LABS: Glucometer 107 mg/dL (74-106)
[2023-04-19 11:59] VITALS: O2SAT 97
[2023-04-19 13:34] VITALS: BP 118/64; PULSE 82; RESP 16; TEMP 36.9; O2SAT 96
[2023-04-19 16:08] LABS: Glucometer 191 mg/dL (74-106)
[2023-04-19] MEDS: POLYETHYLENE GLYCOL 3350 17 GM POWDER PACKET PO (16:12)
[2023-04-19 19:58] VITALS: O2SAT 96
[2023-04-19 21:22] LABS: Glucometer 252 mg/dL (74-106)
[2023-04-19 21:35] VITALS: BP 130/75; PULSE 88; RESP 18; TEMP 36.7; O2SAT 97
[2023-04-19] MEDS: INSULIN DETEMIR 300 UNIT/3 ML INSULN.PEN 32 UNIT SUBQ (21:44)
[2023-04-19] MEDS: OXYBUTYNIN chloride 5 MG TABLET PO (21:45)
[2023-04-19] MEDS: CEFTRIAXONE 1,000 MG in 0.9 % SODIUM CHLORIDE 50 ML 100 MG IV (21:45)
[2023-04-20] VITALS (8 sets, daily range): BP systolic 109–127; BP diastolic 61–73; PULSE 78–88; RESP 16–18; TEMP 36.5–37.1; O2SAT 95–97
[2023-04-20 07:38] LABS: Glucometer 70 mg/dL (74-106)
[2023-04-20] MEDS: TAMSULOSIN HCL 0.4 MG CAPSULE PO ×2 (10:06→21:21)
[2023-04-20] MEDS: FINASTERIDE 5 MG TABLET PO (10:06)
[2023-04-20] MEDS: MAGNESIUM OXIDE 400 MG TABLET PO (10:06)
[2023-04-20] MEDS: LIOTHYRONINE SODIUM 5 MCG TABLET PO (10:06)
[2023-04-20] MEDS: FLUCONAZOLE 150 MG TABLET PO (10:06)
[2023-04-20] MEDS: ASPIRIN 81 MG TABLET.DR PO (10:08)
[2023-04-20] MEDS: ACETAMINOPHEN 500 MG TABLET 1000 MG PO ×2 (10:16→21:23)
[2023-04-20 11:17] LABS: Glucometer 154 mg/dL (74-106)
--- NOTE | 2023-04-20 11:51 | P.IMPN_ITS ---
Progress Note: A&P Assessment and Plan (1) UTI (urinary tract infection) due to urinary indwelling catheter: Assessment and Plan: associated with chronic indwelling catheter. Urine cx growing Gilda. Will start on PO fluconazole. Change urinary catheter. C/w rocephin for now. Qualifiers: Encounter type: subsequent encounter Indwelling urinary catheter type: indwelling urethral catheter Qualified Code(s): T83.511D - Infection and inflammatory reaction due to indwelling urethral catheter, subsequent encounter; N39.0 - Urinary tract infection, site not specified (2) Hyperglycemia due to diabetes mellitus: Assessment and Plan: FSBS at goal. c/w home regimen (3) Major depression: Assessment and Plan: Stable mood. Recent admission at [facility] for suicidal ideation (4) BPH (benign prostatic hyperplasia): Assessment and Plan: Chronic indwelling catheter in place. On Flomax and Finasteride. C/w same. (5) Ambulatory dysfunction: Assessment and Plan: due to severe hip arthritis. Wheelchair bound. Plan Patient is homeless, wheelchair bound. He has no family around. His female friend who he lived with - is at assisted now. He will stay inpatient until a safe, reasonable discharge plan is present. Based on his physical conditions, living situation, assisted placement seems most reasonable. Internal Medicine - PN: Subj Subjective Interval history: Seen and examined. Feeling better. No complaints to offer. Exam Constitutional Vital Signs, click to edit/add: Last Vital Signs Temp 97.7 F 04/20/23 07:00 Pulse 84 04/20/23 07:52 Resp 16 04/20/23 07:52 BP 120/61 04/20/23 07:00 Pulse Ox 97 04/20/23 07:00 O2 Del Method Room Air 04/20/23 07:00 Documenting provider has reviewed patient's vital signs: yes Common normals: no apparent distress and oriented x3 General appearance: cooperative Respiratory Common normals: normal respiratory effort and clear to auscultation bilaterally Effort & inspection: able to speak in complete sentences Auscultation: clear to auscultation bilaterally Cardio Common normals: regular rate, S1 normal heart sound and S2 normal heart sound Rate: regular rate Heart sounds: S1 normal and S2 normal Extremity Common normals: no clubbing, cyanosis or edema Neuro Common normals: oriented x3, moves all extremities and no focal motor deficits Internal Medicine - PN: Obj Da Labs Labs: Laboratory Results - last 24 hr 04/19/23 04/19/23 04/20/23 16:07 21:11 07:37 POC Glucose 191 H 252 H 70 L 04/20/23 11:10 POC Glucose 154 H Urinary Catheter Management Urinary Catheter Management Urethral: Cath placed during this visit: yes, but has since been removed by the nurse Urethral indwelling: Yes Insertion date: 04/18/23 Insertion time: 18:56 Removal date: 04/18/23 Removal time: 18:40
[2023-04-20 16:04] LABS: Glucometer 280 mg/dL (74-106)
[2023-04-20] MEDS: INSULIN ASPART 300 UNIT/3 ML PEN SUBQ (16:34)
[2023-04-20 20:10] LABS: Glucometer 126 mg/dL (74-106)
[2023-04-20] MEDS: CEFTRIAXONE 1,000 MG in 0.9 % SODIUM CHLORIDE 50 ML 100 MG IV (21:19)
[2023-04-20] MEDS: METFORMIN HCL 500 MG TABLET PO (21:21)
[2023-04-20] MEDS: ENSURE HP 237 ML LIQUID PO (21:21)
[2023-04-20] MEDS: OXYBUTYNIN chloride 5 MG TABLET PO (21:21)
[2023-04-21] VITALS (8 sets, daily range): BP systolic 116–135; BP diastolic 65–81; PULSE 83–86; RESP 16–18; TEMP 36.4–36.6; O2SAT 95–97
[2023-04-21] MEDS: HYOSCYAMINE SULFATE 0.125 MG TAB.SUBL SL ×4 (05:44→21:24)
[2023-04-21] MEDS: OMEPRAZOLE 40 MG CAPSULE.DR PO (05:44)
[2023-04-21] MEDS: ACETAMINOPHEN 500 MG TABLET 1000 MG PO (05:44)
[2023-04-21 07:31] LABS: Glucometer 246 mg/dL (74-106)
[2023-04-21] MEDS: INSULIN ASPART 300 UNIT/3 ML PEN SUBQ ×4 (08:33→21:20)
[2023-04-21] MEDS: FINASTERIDE 5 MG TABLET PO (09:11)
[2023-04-21] MEDS: METFORMIN HCL 500 MG TABLET PO ×2 (09:11→21:19)
[2023-04-21] MEDS: TAMSULOSIN HCL 0.4 MG CAPSULE PO ×2 (09:11→21:13)
[2023-04-21] MEDS: FLUCONAZOLE 150 MG TABLET PO (09:11)
[2023-04-21] MEDS: ASPIRIN 81 MG TABLET.DR PO (09:12)
[2023-04-21] MEDS: GLIMEPIRIDE 2 MG TABLET PO (09:12)
[2023-04-21] MEDS: MAGNESIUM OXIDE 400 MG TABLET PO (09:12)
[2023-04-21] MEDS: LIOTHYRONINE SODIUM 5 MCG TABLET PO (09:12)
--- NOTE | 2023-04-21 09:44 | CM.NOTE ---
Called [facility] for pt's precert status. Message left with intake. Important Message From medicare discussed with pt ,pt verbalizes understanding and signs paper. Original given to pt and copy placed in pt's chart.
--- NOTE | 2023-04-21 10:06 | CM.NOTE ---
[facility] [place] [facility] called and pt's precertification has gone through, tiger text sent to Dr. Ascencio. Pt is medically stable for discharge today.
--- NOTE | 2023-04-21 10:22 | PM.DS1 ---
DS: Providers Provider Date of admission: 04/17/23 18:18 Primary care physician: Non-Staff PhysicianMD Consults: 04/16/23 Consult to Supervisor Paper Machine Routine Reason for consult:: Housing/Senior Care 04/16/23 06:28 Consult to Supervisor Paper Machine Routine Reason for consult:: Other Other reason:: homeless, ECF placement 04/16/23 09:25 Occupational Therapy Eval and Treat Routine Reason for consultation: Only if needed for Rehab Has provider been notified: No Physical Therapy Eval and Treat Routine Reason for consultation: Eval and Treat Has provider been notified: No Attending physician on discharge: Shaikh Sonu Discharging clinician: Shaikh Sonu Anticipated date of discharge: 04/21/23 DS: Diagnosis Discharge Diagnosis (1) UTI (urinary tract infection) due to urinary indwelling catheter: Assessment and plan: sec to arnulfo. due to and associated with chronic indwelling catheter. Catheter changed during hosptial visit. D/c on PO fluconazole. Was also treated with IV rocephin in the hospital Qualifiers: Encounter type: subsequent encounter Indwelling urinary catheter type: indwelling urethral catheter Qualified Code(s): T83.511D - Infection and inflammatory reaction due to indwelling urethral catheter, subsequent encounter; N39.0 - Urinary tract infection, site not specified (2) Hyperglycemia due to diabetes mellitus: Assessment and plan: FSBS at goal. C/w home meds. (3) Major depression: Assessment and plan: Recent hospital stay for suicidal ideation. Stable now. C/w home meds. (4) BPH (benign prostatic hyperplasia): Assessment and plan: CHronic indwellign catheter in place. Outpatient f/u with Urology. (5) Ambulatory dysfunction: Assessment and plan: due to severe arthritis, wheelchair bound. Accept for SNF placement. Stable for discharge. DS: Summary Hospital Course Hospital Course: Patient admitted for weakness, hyperglycemia sec to UTI and non compliance with medications. He has severe right hip arthritis and wheelchair bound because of it. Had recent hospital admission for suicidal ideation and when he was discharged, he had no place to live and go to. He was admitted for UTI, underwent PT/OT and resumed his diabetic meds with improvement in his overall clinical status Urine culture was positive for arnulfo. Will d/c on PO fluconazole. Patient was treated with Rocephin for presumed bacterial UTI and has received 5 days coruse for it and as such does not need it anymore. PT/OT eval indicated/ recommended rehab placement. Patient stable for d/c on PO fluconazole. Status at Discharge Functional status at discharge: wheelchair bound Overall status at discharge: patient is progressing back to baseline Time Spent with Patient Time attestation: Total time spent providing and/or coordinating discharge services: Exam Constitutional Vital Signs, click to edit/add: Last Vital Signs Temp 97.7 F 04/21/23 07:30 Pulse 83 04/21/23 07:30 Resp 16 04/21/23 07:30 BP 124/76 04/21/23 07:30 Pulse Ox 95 04/21/23 07:30 O2 Del Method Room Air 04/21/23 07:30 Documenting provider has reviewed patient's vital signs: yes Common normals: no apparent distress and oriented x3 General appearance: cooperative Respiratory Common normals: normal respiratory effort and clear to auscultation bilaterally Effort & inspection: able to speak in complete sentences Auscultation: clear to auscultation bilaterally Cardio Common normals: regular rate, S1 normal heart sound and S2 normal heart sound Rate: regular rate Heart sounds: S1 normal and S2 normal Extremity Common normals: no clubbing, cyanosis or edema Neuro Common normals: oriented x3, moves all extremities and no focal motor deficits DS: Data Data Completed and Pending Labs on day of discharge: Labs from last 24 hours 04/21/23 04/20/23 04/20/23 07:30 20:08 16:04 POC Glucose 246 H 126 H 280 H 04/20/23 11:10 POC Glucose 154 H Preliminary micro results at discharge 04/16/23 04:44 - Preliminary Blood NO GROWTH AT 36-48 HOURS. FINAL TO FOLLOW. 04/16/23 04:40 Blood Culture Result 1 - Preliminary Blood NO GROWTH AT 36-48 HOURS. FINAL TO FOLLOW. Discharge Plan Discharge Disposition: Xfer SNF Condition: Good Discharge Medications: New fluconazole 150 mg tablet 150 mg PO DAILY Qty: 5 0RF Continued finasteride 5 mg tablet 5 mg PO DAILY insulin glargine [Lantus Solostar U-100 Insulin] 100 unit/mL (3 mL) insulin pen 32 unit SUBCUT BEDTIME lithium carbonate 300 mg tablet extended release 300 mg PO BID metformin 500 mg tablet 500 mg PO BID oxybutynin chloride 5 mg tablet 10 mg PO BEDTIME tamsulosin 0.4 mg capsule 0.4 mg PO BID Novolin R FlexPen 100 unit/mL (3 mL) insulin pen 1 sliding scale dose SUBCUT TIDWMEAL Forms: Portal Instructions Follow Up Appointments: F/u with PCP in one week F/u with urology in 2-4 weeks
--- NOTE | 2023-04-21 10:43 | CM.NOTE ---
Rounds made with Dr. Ascencio. Plan is for discharge to SNF at [facility].
[2023-04-21 11:08] LABS: Glucometer 272 mg/dL (74-106)
--- NOTE | 2023-04-21 11:30 | CM.NOTE ---
Faxed discharge summary, CRF, and medlist to [facility] for pt's discharge. [facility] wheelchair transport will pick pt up at 5:00 to take to [facility]. RN updated and also let pt know time of transport.
--- NOTE | 2023-04-21 13:50 | PC.NURSE ---
1348 called [facility] to give report. now answer at this time.
--- NOTE | 2023-04-21 13:54 | PC.NURSE ---
1356 called [facility] to give report. spoke with Julia. left message for nurse that pt will be picked up from [facility] at five pm and left call back for report when ready.
--- NOTE | 2023-04-21 14:06 | PC.NURSE ---
report given to Brittany at [facility] at this time.
[2023-04-21 16:07] LABS: Glucometer 189 mg/dL (74-106)
[2023-04-21 21:21] LABS: Glucometer 246 mg/dL (74-106)
[2023-04-21] MEDS: INSULIN DETEMIR 300 UNIT/3 ML INSULN.PEN 32 UNIT SUBQ (21:21)
[2023-04-21] MEDS: ENSURE HP 237 ML LIQUID PO (21:24)
[2023-04-21] MEDS: OXYBUTYNIN chloride 5 MG TABLET PO (21:29)
== END 2023-04-22 00:44 ==
LOC: ER 04-16 09:50 → MS 04-16 10:19
PROVIDERS: Emergency Medicine; Family Medicine; Admitting Provider Internal Medicine; Emergency Provider Emergency Medicine; Visit Provider Internal Medicine
DX: T83.511A Infection and inflammatory reaction due to indwelling urethral catheter, initial encounter (principal); B37.49 Other urogenital candidiasis; E87.1 Hypo-osmolality and hyponatremia; E44.1 Mild protein-calorie malnutrition; E11.65 Type 2 diabetes mellitus with hyperglycemia; N40.1 Benign prostatic hyperplasia with lower urinary tract symptoms; M16.9 Osteoarthritis of hip, unspecified; F17.200 Nicotine dependence, unspecified, uncomplicated; I25.10 Atherosclerotic heart disease of native coronary artery without angina pectoris; D63.8 Anemia in other chronic diseases classified elsewhere; D50.9 Iron deficiency anemia, unspecified; F31.9 Bipolar disorder, unspecified; Z68.1 Body mass index [BMI] 19.9 or less, adult; J44.9 Chronic obstructive pulmonary disease, unspecified; R26.9 Unspecified abnormalities of gait and mobility; R06.00 Dyspnea, unspecified; Z59.00 Homelessness unspecified; Z99.3 Dependence on wheelchair; Z79.4 Long term (current) use of insulin; Z79.84 Long term (current) use of oral hypoglycemic drugs; Z79.899 Other long term (current) drug therapy; Z95.5 Presence of coronary angioplasty implant and graft
CPT/HCPCS: 36415; 36416; 51702; 71046; 73502; 80053; 80178; 81001; 82948; 83605; 83735; 83880; 84436; 84443; 84481; 84484; 85025; 87040; 87086; 87106; 94667; 94668; 94761; 96361; 96365; 96366; 96367; 97110; 97161; 97530; 99285; G0378